=== PATIENT | male | born 1945 | race Caucasian/White ===

== ENCOUNTER → 2020-08-22 | Day surgery (SDC) | payer OTHER ==
[~2020-08-22] MED LIST: HCTZ25 MG PO; PRINIVIL20 MG PO
[2020-08-22 08:17] LABS: HCT 43.7 % (42.0-52.0); HGB 15.2 g/dl (13.2-18.0); MCH 32.1 pg (25.0-31.0); MCHC 34.8 g/dL (32.0-36.0); MCV 92.2 fL (78.0-100.0); MPV 10.5 fL (6.0-9.5); RBC 4.74 M/uL (4.70-6.00); RDW 12.3 % (11.5-14.0); WBC 5.6 K/uL (4.0-10.5)
[2020-08-22 08:25] LABS: ALBUMIN 3.9 g/dL (3.4-5.0); BILIRUBIN - TOTAL 0.7 mg/dL (0.2-1.0); BUN/CREAT RATIO (CALC) 20.2 RATIO; CREATININE 0.89 mg/dL (0.67-1.17); GLOBULIN (CALCULATION) 3.9 g/dL; TOTAL PROTEIN 7.8 g/dL (6.4-8.2)
== END | disposition home or self-care (01) ==
LOC: FAS 07:11
PROVIDERS: Surgery
DX: Z12.11 Encounter for screening for malignant neoplasm of colon (principal); I10 Essential (primary) hypertension; Z82.49 Family history of ischemic heart disease and other diseases of the circulatory system
CPT/HCPCS: 36415; 80053; J1610; J2250; J7120